=== PATIENT | female | born 1995 | race American Indian/Alaskan Native ===

== ENCOUNTER 2019-04-23 13:09 | Outpatient (CLI) | payer OTHER | END 2019-04-23 18:23 | disposition home or self-care (01) | LOC: OBS/DEL 13:09 | DX: O26.893 Other specified pregnancy related conditions, third trimester (principal); R00.2 Palpitations; Z34.03 Encounter for supervision of normal first pregnancy, third trimester ==

== ENCOUNTER 2019-05-09 02:36 | Outpatient (CLI) | payer OTHER | END 2019-05-09 20:45 | disposition home or self-care (01) | LOC: OBS/DEL 02:36 | DX: O26.893 Other specified pregnancy related conditions, third trimester (principal); Z04.1 Encounter for examination and observation following transport accident; V49.88XA Car occupant (driver) (passenger) injured in other specified transport accidents, initial encounter; Y93.89 Activity, other specified; Y92.488 Other paved roadways as the place of occurrence of the external cause; Y99.8 Other external cause status ==

== ENCOUNTER 2019-06-20 15:17 | Inpatient (IN) | payer OTHER ==
[~2019-06-20] VITALS: Ht 160 cm; Wt 77.6 kg
[2019-06-20] MEDS ORDERED: PRENATAL TABLE1 EAC1 PO (17:57)
[2019-06-20] MEDS ORDERED: ADULT ASPIRIN81 MG PO (17:58)
[2019-06-25] MEDS ORDERED: Ferro-Plex CAPLET PO (10:16)
== END 2019-06-25 12:34 | disposition home or self-care (01) | DRG 806 ==
LOC: LDR 15:17 → OB/GYN 15:17
PROVIDERS: ADMIT Specialist
PROC: 4A1HXCZ Monitoring of Products of Conception, Cardiac Rate, External Approach (ICD-10-PCS; 2019-06-20)
PROC: 10E0XZZ Delivery of Products of Conception, External Approach (ICD-10-PCS; principal; 2019-06-23)
PROC: 0UQMXZZ Repair Vulva, External Approach (ICD-10-PCS; 2019-06-23)
PROC: 0UQGXZZ Repair Vagina, External Approach (ICD-10-PCS; 2019-06-23)
PROC: 3E0P7VZ Introduction of Hormone into Female Reproductive, Via Natural or Artificial Opening (ICD-10-PCS; 2019-06-23)
PROC: 3E033VJ Introduction of Other Hormone into Peripheral Vein, Percutaneous Approach (ICD-10-PCS; 2019-06-23)
PROC: 10907ZC Drainage of Amniotic Fluid, Therapeutic from Products of Conception, Via Natural or Artificial Opening (ICD-10-PCS; 2019-06-23)
DX: O71.82 Other specified trauma to perineum and vulva (principal); O71.4 Obstetric high vaginal laceration alone; Z37.0 Single live birth; O99.12 Other diseases of the blood and blood-forming organs and certain disorders involving the immune mechanism complicating childbirth; Z3A.37 37 weeks gestation of pregnancy